=== PATIENT | male | born 1960 | race Caucasian/White ===

== ENCOUNTER 2019-04-24 06:18 | Outpatient (RCR) | payer BC, SELFPAY | END 2019-05-03 23:59 | disposition home or self-care (01) | LOC: SPT 06:18 | PROVIDERS: Family Provider Internal Medicine; PCP Internal Medicine; Referring Provider Orthopaedic Surgery; Visit Provider Orthopaedic Surgery | DX: Z47.89 Encounter for other orthopedic aftercare (principal) | CPT/HCPCS: 97110; 97162 ==

== ENCOUNTER 2019-05-04 06:00 | Outpatient (RCR) | payer BC, SELFPAY | END 2019-06-01 23:59 | disposition home or self-care (01) | LOC: SPT 06:00 | PROVIDERS: Family Provider Internal Medicine; PCP Internal Medicine; Referring Provider Orthopaedic Surgery; Visit Provider Orthopaedic Surgery | DX: Z47.89 Encounter for other orthopedic aftercare (principal) | CPT/HCPCS: 97110; 97162 ==

== ENCOUNTER → 2019-05-23 09:25 | Outpatient (BNVA) | payer BC, SELFPAY | PROVIDERS: Family Provider Internal Medicine; PCP Internal Medicine; Visit Provider Orthopaedic Surgery | DX: M25.511 Pain in right shoulder (principal) | CPT/HCPCS: 73030 ==

== ENCOUNTER 2019-06-02 06:00 | Outpatient (RCR) | payer BC, SELFPAY | END 2019-07-02 23:59 | disposition home or self-care (01) | LOC: SPT 06:00 | PROVIDERS: Family Provider Internal Medicine; PCP Internal Medicine; Referring Provider Orthopaedic Surgery; Visit Provider Orthopaedic Surgery | DX: Z47.89 Encounter for other orthopedic aftercare (principal) | CPT/HCPCS: 97110 ==

== ENCOUNTER 2019-07-03 06:00 | Outpatient (RCR) | payer SELFPAY | END 2019-08-01 23:59 | disposition home or self-care (01) | LOC: SPT 06:00 | PROVIDERS: Family Provider Internal Medicine; PCP Internal Medicine; Referring Provider Orthopaedic Surgery; Visit Provider Orthopaedic Surgery | DX: Z47.89 Encounter for other orthopedic aftercare (principal); S46.001D Unspecified injury of muscle(s) and tendon(s) of the rotator cuff of right shoulder, subsequent encounter; X58.XXXD Exposure to other specified factors, subsequent encounter | CPT/HCPCS: 97110 ==

== ENCOUNTER 2022-02-21 07:42 | Outpatient (CLI) | payer BC, SELFPAY ==
--- NOTE | 2022-02-21 07:54 | MR_ITS ---
WS: [id number] MRI CERVICAL SPINE NONCONTRAST TECHNIQUE: Sagittal T1, T2 and STIR imaging. Axial T2, gradient, and fiesta imaging. CLINICAL INFORMATION: LEFT SIDED NUMBNESS COMPARISON: None. FINDINGS: Some images degraded by patient motion. Straightening of the normal cervical lordosis. Cord signal is normal. C2-C3: Mild facet arthropathy. Spinal canal and foramen are patent. C3-C4: Mild disc bulging with osteophytic ridging. Tiny central disc protrusion. Mild central canal s tenosis. Moderate to severe LEFT bony foraminal narrowing. Moderate LEFT facet arthropathy with peria rticular edema consistent with synovitis. Mild RIGHT foraminal narrowing. C4-C5: Disc osteophyte complex with endplate ridging. Mild central canal stenosis. Advanced LEFT face t arthropathy. Severe LEFT bony foraminal narrowing. Mild RIGHT foraminal narrowing. C5-C6: Disc osteophyte complex with endplate ridging. Slight indentation on cervical cord. Mild centr al canal stenosis. Mild to moderate bilateral bony foraminal narrowing. Small amount of facet synovit is LEFT C5-C6 C6-C7: Disc osteophytic ridging. Mild bilateral bony foraminal narrowing. Spinal canal is patent. Mil d facet arthropathy. C7-T1: Normal. . Visualized brain stem structures: Normal. Prevertebral soft tissues: Normal. MR/MR cervical spin wo con* [id number] IMPRESSION: 1. Straightening of the normal cervical lordosis. Cord signal is normal. 2. Mild central canal stenosis C3-C4 C4-C5 and C5-C6. 3. Moderate to severe LEFT C3-C4 and severe LEFT C4-C5 bony foraminal narrowin g. Mild to moderate LEFT C5-C6 bony foraminal narrowing. 4. Mild edema with facet synovitis LEFT C3-C4 and LEFT C5-C6.
== END 2022-02-21 07:43 | disposition home or self-care (01) ==
PROVIDERS: PCP Internal Medicine; Visit Provider Internal Medicine
DX: R20.0 Anesthesia of skin (principal); M48.02 Spinal stenosis, cervical region; M65.88 Other synovitis and tenosynovitis, other site
CPT/HCPCS: 72141

== ENCOUNTER 2023-10-16 15:34 | Outpatient (CLI) | payer BC, SELFPAY ==
[2023-10-16 16:35] LABS: Alanine Aminotransferase 27 U/L (0-41); Albumin Level 4.2 g/dL (3.5-5.2); Alkaline Phosphatase 98 U/L (40-130); Aspartate Amino Transferase 18 U/L (0-40); Blood Urea Nitrogen 25 mg/dL (8-23); Calcium 8.9 mg/dL (8.5-10.5); Carbon Dioxide 27 mmol/L (22-29); Chloride 104 mmol/L (98-107); Chol HDL Ratio 2.76 mg/dL (1.0-5.00); Cholesterol 113 mg/dL (0-200); Globulin 2.8 g/dL (1.3-4.6); Glucose 109 mg/dL (65-115); HDL Cholesterol 41 mg/dL (60-100); LDL Cholesterol Calculated 45 mg/dL (50-129); Osmolality Calculated 295 mOsm/kg (285-295); Sodium 140 mmol/L (136-145); Total Bilirubin 0.5 mg/dL (0.15-1.2); Triglycerides 134 mg/dL (0-150)
[2023-10-16 16:38] LABS: Creatinine Urine, Random 108 mg/dL (39-259); Microalbum Creatinine Ratio Ur 9 mg/dL (0-20); Microalbumin Random Urine 1 ug/dL (0-20)
[2023-10-16 16:49] LABS: Estmated Average Glucose 157; Hemoglobin A1C 7.1 % (4.0-6.0)
== END 2023-10-16 15:35 | disposition home or self-care (01) ==
LOC: LAB 15:35
PROVIDERS: PCP Internal Medicine; Visit Provider Internal Medicine
DX: E11.9 Type 2 diabetes mellitus without complications (principal)
CPT/HCPCS: 36415; 80053; 80061; 82044; 83036